=== PATIENT | male | born 1995 | race Two or more races ===

== ENCOUNTER 2021-05-11 13:13 | Emergency (ER) | payer OTHER ==
[2021-05-11 13:45] VITALS: BP 113/72; PULSE 82; TEMP 97.8; BMI 21.7
[2021-05-11] MEDS ORDERED: DIPHTH,PERTUSS(ACELL),TET 0.5 ML DISP.SYRIN IM ONE ×2 (13:51→14:17)
[2021-05-11] MEDS ORDERED: RABIES VACCINE (PCEC)/PF 2.5 UNIT/VIAL IM ONE ×2 (13:56→14:43)
[2021-05-11] MEDS ORDERED: RABIES IMMUNE GLOBULIN 300 UNITS/1 ML VIAL IM ONE (13:57)
== END 2021-05-11 15:45 | disposition home or self-care (01) ==
LOC: JER 13:13 → JERFT 13:13
PROC: 3E0234Z Introduction of Serum, Toxoid and Vaccine into Muscle, Percutaneous Approach (ICD-10-PCS; principal; 2021-05-11)
PROC: 3E0234Z Introduction of Serum, Toxoid and Vaccine into Muscle, Percutaneous Approach (ICD-10-PCS; 2021-05-11)
DX: S60.411A Abrasion of left index finger, initial encounter (principal); W55.01XA Bitten by cat, initial encounter; Y92.9 Unspecified place or not applicable
CPT/HCPCS: 90375; 90471; 90675; 90715; 99283-25